=== PATIENT | female | born 1950 | race Caucasian/White ===

== ENCOUNTER 2018-08-26 12:37 | Emergency (ER) | payer MEDICARE, MEDICAID ==
--- NOTE | 2018-08-26 13:08 | ER Document Report ---
ED Medical Screen (RME) - General Chief Complaint: Leg Swelling Stated Complaint: BACK PAIN Time Seen by Provider: 08/26/18 12:56 Notes: Patient is a 68-year-old female with history of COPD that presents to the emergency department for chief complaint of bilateral pleuritic posterior rib pain that wraps around towards the front, worse on the right compared to left. Patient's been having this for the last several days, she is also noticed some weight gain, 10 pounds over the last 6 months, without intentional change in her diet, she is also noticed fluid retention in her legs, which is new for her. ROS: Other than noted above, the 12 point review of systems was reviewed with the patient and were negative, all pertinent findings are included in the HPI. PHYSICAL EXAMINATION: Vital signs reviewed. GENERAL: Well-appearing, well-nourished and in no acute distress. HEAD: Atraumatic, normocephalic. EYES: Pupils equal round extraocular movements intact, conjunctiva are normal. ENT: Nares patent NECK: Normal range of motion CV: Heart rate tachycardic, regular rhythm LUNGS: No respiratory distress, lung sounds diminished at the bases, no wheezing or distress Musculoskeletal: Normal range of motion NEUROLOGICAL: Normal speech PSYCH: Normal mood, normal affect. MDM: Patient seen and examined for rapid initial assessment. Vital signs reviewed. A comprehensive ED assessment and evaluation of the patient, analysis of test results and completion of the medical decision making process will be conducted by additional ED providers. *Note is created using voice recognition software and may contain spelling, syntax or grammatical errors. TRAVEL OUTSIDE OF THE [place] IN LAST 30 DAYS: No - Related Data Allergies/Adverse Reactions: No Known Allergies Allergy (Unverified 08/26/18 12:41) Past Medical History - Social History Chew tobacco use (# tins/day): No Frequency of alcohol use: None Drug Abuse: None - Past Medical History Cardiac Medical History: Reports: Hx Hypercholesterolemia Pulmonary Medical History: Reports: Hx COPD Renal/ Medical History: Denies: Hx Peritoneal Dialysis Physical Exam - Vital signs Vitals: Temp Pulse Resp BP Pulse Ox 97.9 F 103 H 18 146/76 H 92 08/26/18 12:41 08/26/18 12:41 08/26/18 12:41 08/26/18 12:41 08/26/18 12:41 Course - Vital Signs Vital signs: Temp Pulse Resp BP Pulse Ox 97.9 F 103 H 18 146/76 H 92 08/26/18 12:41 08/26/18 12:41 08/26/18 12:41 08/26/18 12:41 08/26/18 12:41
--- NOTE | 2018-08-26 13:45 | RADIOLOGY REPORT (SQ) ---
EXAM DESCRIPTION: CHEST 2 VIEWS COMPLETED DATE/TIME: 08/26/2018 1:21 pm REASON FOR STUDY: short of breath COMPARISON: None. EXAM PARAMETERS: NUMBER OF VIEWS: two views TECHNIQUE: Digital Frontal and Lateral radiographic views of the chest acquired. RADIATION DOSE: NA LIMITATIONS: none FINDINGS: LUNGS AND PLEURA: Small nodular appearing density is identified in the right lung apex and an apical lordotic view of the chest may be of value for further evaluation MEDIASTINUM AND HILAR STRUCTURES: No masses or contour abnormalities. HEART AND VASCULAR STRUCTURES: Heart normal size. No evidence for failure. BONES: No acute findings. HARDWARE: None in the chest. OTHER: No other significant finding. IMPRESSION: Small nodular appearing density is identified in the right lung apex and an apical lordo tic view of the chest may be of value for further evaluation. Remaining lung mayen are clear. Othe r findings as noted above TECHNICAL DOCUMENTATION: JOB ID: [id number] [employer]- All Rights Reserved Reading location - IP/workstation name: [email or web address]
[2018-08-26 14:03] LABS: ABSOLUTE BASOPHILS # (AUTO) 0.1 10^3/uL (0.0-0.2); ABSOLUTE EOSINOPHILS # (AUTO) 0.1 10^3/uL (0.0-0.6); ABSOLUTE LYMPHOCYTES (AUTO) 0.7 10^3/uL (0.5-4.7); ABSOLUTE MONOCYTES (AUTO) 0.5 10^3/uL (0.1-1.4); ABSOLUTE NEUT (AUTO) 5.4 10^3/uL (1.7-8.2); BASOPHILS % (AUTO) 0.8 % (0-2); EOSINOPHILS % (AUTO) 0.8 % (0-6); HEMATOCRIT 39.9 % (36.0-47.0); HEMOGLOBIN 13.4 g/dL (12.0-15.5); LYMPHOCYTES % (AUTO) 10.6 % (13-45); MEAN CORPUSCULAR HEMOGLOBIN 29.1 pg (27.0-33.4); MEAN CORPUSCULAR HGB CONC 33.6 g/dL (32.0-36.0); MEAN CORPUSCULAR VOLUME 87 fl (80-97); MONOCYTES % (AUTO) 8.1 % (3-13); PLATELET COUNT 262 10^3/uL (150-450); RED BLOOD COUNT 4.61 10^6/uL (3.72-5.28); RED CELL DISTRIBUTION WIDTH 13.7 % (11.5-14.0); SEGMENTED NEUTROPHILS % (AUTO) 79.7 % (42-78); TOTAL CELLS COUNTED % (AUTO) 100 %; WHITE BLOOD COUNT 6.7 10^3/uL (4.0-10.5)
[2018-08-26 14:21] LABS: ALANINE AMINOTRANSFERASE 34 U/L (9-52); ALBUMIN 4.3 g/dL (3.5-5.0); ALKALINE PHOSPHATASE 78 U/L (38-126); ANION GAP 9 (5-19); ASPARTATE AMINO TRANSFERASE 32 U/L (14-36); BILIRUBIN,DIRECT 0.3 mg/dL (0.0-0.4); BILIRUBIN,TOTAL 0.7 mg/dL (0.2-1.3); BLOOD UREA NITROGEN 18 mg/dL (7-20); CALCIUM 9.5 mg/dL (8.4-10.2); CARBON DIOXIDE 29 mmol/L (22-30); CHLORIDE 106 mmol/L (98-107); GLUCOSE 111 mg/dL (75-110); POTASSIUM 4.4 mmol/L (3.6-5.0); SODIUM 143.8 mmol/L (137-145); TOTAL PROTEIN 7.2 g/dL (6.3-8.2)
[2018-08-26 14:32] LABS: NT PRO BNP 220 pg/mL (5-900)
[2018-08-26 14:33] LABS: TROPONIN I < 0.012 ng/mL
--- NOTE | 2018-08-26 15:59 | ER Document Report ---
ED General - General Chief Complaint: Leg Swelling Stated Complaint: BACK PAIN Time Seen by Provider: 08/26/18 12:56 Mode of Arrival: Ambulatory Information source: Patient Notes: Patient presents complaining of a 5-day history of rib pain that that wraps around back to the anterior rib area to the epigastric area. Patient states that she feels as though she is retaining fluid. Patient denies any nausea or vomiting. Patient denies any urinary symptoms or cough. Patient is concerned that she will have a thyroid issue. Patient denies any recent travel or immobilization. Patient denies any aggravating or alleviating factors. Patient describes discomfort as a pressure that she rates at about a 2 out of 5 scale. Patient declines needing any pain medication at this time. Patient denies any chest pain or shortness of breath. TRAVEL OUTSIDE OF THE [place] IN LAST 30 DAYS: No - HPI Onset: Other - 5 days Onset/Duration: Persistent Quality of pain: Pressure Pain Level: 2 Associated symptoms: Other - Back pain that wraps around to the front of abdomen. denies: Chest pain, Nonproductive cough, Productive cough, Diarrhea, Fever, Nausea, Vomiting Exacerbated by: Denies Relieved by: Denies Similar symptoms previously: No Recently seen / treated by doctor: No - Related Data Allergies/Adverse Reactions: No Known Allergies Allergy (Unverified 08/26/18 12:41) Past Medical History - General Information source: Patient - Social History Smoking Status: Former Smoker Chew tobacco use (# tins/day): No Frequency of alcohol use: None Drug Abuse: None Occupation: Retired Family History: Reviewed & Not Pertinent Patient has suicidal ideation: No Patient has homicidal ideation: No - Past Medical History Cardiac Medical History: Reports: Hx Hypercholesterolemia Pulmonary Medical History: Reports: Hx COPD Renal/ Medical History: Denies: Hx Peritoneal Dialysis GI Medical History: Reports: Hx Gastroesophageal Reflux Disease Past Surgical History: Reports: Hx Orthopedic Surgery Review of Systems - Review of Systems Constitutional: Weight gain - 10 pound weight gain over 6 months. denies: Fever , Recent illness EENT: No symptoms reported Cardiovascular: No symptoms reported. denies: Chest pain, Dyspnea, Syncope Respiratory: No symptoms reported. denies: Cough, Hemoptysis, Short of breath Gastrointestinal: Abdominal pain - Epigastric. denies: Diarrhea, Nausea, Vomiting, Poor appetite Genitourinary: No symptoms reported. denies: Dysuria, Flank pain Female Genitourinary: No symptoms reported Musculoskeletal: Back pain - Thoracic back pain that wraps around lateral rib area to the epigastric area, no midline spinal tenderness Skin: No symptoms reported Hematologic/Lymphatic: No symptoms reported Neurological/Psychological: No symptoms reported Physical Exam - Vital signs Vitals: Temp Pulse Resp BP Pulse Ox 97.9 F 103 H 18 146/76 H 92 08/26/18 12:41 08/26/18 12:41 08/26/18 12:41 08/26/18 12:41 08/26/18 12:41 - General General appearance: Appears well, Alert In distress: None - HEENT Head: Normocephalic, Atraumatic Eyes: Normal Conjunctiva: Normal Nasal: Normal Mouth/Lips: Normal Mucous membranes: Normal Neck: Normal, Supple. No: Lymphadenopathy - Respiratory Respiratory status: No respiratory distress Chest status: Nontender Breath sounds: Normal. No: Rales, Rhonchi, Stridor, Wheezing Chest palpation: Normal - Cardiovascular Rhythm: Regular Heart sounds: S1 appreciated, S2 appreciated Murmur: No - Abdominal Inspection: Obese Distension: No distension Bowel sounds: Normal Tenderness: Tender - Epigastric, left upper quadrant, right upper quadrant tenderness. No: Guarding Organomegaly: No organomegaly - Back Back: Tender - Thoracic paraspinal tenderness T7 area. No: CVA tenderness, Vertebra tenderness - Extremities General upper extremity: Normal inspection, Normal strength General lower extremity: Normal inspection, Normal strength. No: Edema - Neurological Neuro grossly intact: Yes Cognition: Normal David Coma Scale Eye Opening: Spontaneous David Coma Scale Verbal: Oriented David Coma Scale Motor: Obeys Commands David Coma Scale Total: 15 - Psychological Associated symptoms: Normal affect, Normal mood - Skin Skin Temperature: Warm Skin Moisture: Dry Skin Color: Normal Course - Re-evaluation Re-evalutation: 08/26/18 18:[address] Baker regarding patient presentation. Reviewed patient's x-ray report and concern about possible scar tissue versus neoplasm to the apex of lung. Recommends having patient follow-up with primary doctor and further evaluating this finding on an outpatient basis. No additional testing advised at this time. Patient presents with abdominal pain without signs of peritonitis or other life-threatening or serious etiology. Patient appears stable for discharge and has been instructed to return immediately if the symptoms worsen in any way, or in 8-12 hours if not improved for reevaluation. The patient has been instructed to return if the symptoms worsen or change in any way. - Vital Signs Vital signs: Temp Pulse Resp BP Pulse Ox 97.9 F 103 H 21 H 161/80 H 93 08/26/18 12:41 08/26/18 12:41 08/26/18 19:01 08/26/18 19:01 08/26/18 19:01 - Laboratory Result Diagrams: 08/26/18 13:46 08/26/18 13:46 Laboratory results interpreted by me: 08/26/18 08/26/18 13:46 13:46 Seg Neutrophils % 79.7 H Lymphocytes % 10.6 L Glucose 111 H 08/26/18 18:55 Labs- Entire Visit 08/26/18 08/26/18 08/26/18 13:46 13:46 13:46 WBC 6.7 RBC 4.61 Hgb 13.4 Hct 39.9 MCV 87 MCH 29.1 MCHC 33.6 RDW 13.7 Plt Count 262 Seg Neutrophils % 79.7 H Lymphocytes % 10.6 L Monocytes % 8.1 Eosinophils % 0.8 Basophils % 0.8 Absolute Neutrophils 5.4 Absolute Lymphocytes 0.7 Absolute Monocytes 0.5 Absolute Eosinophils 0.1 Absolute Basophils 0.1 Sodium 143.8 Potassium 4.4 Chloride 106 Carbon Dioxide 29 Anion Gap 9 BUN 18 Creatinine 0.74 Est GFR ( Amer) > 60 Est GFR (Non-Af Amer) > 60 Glucose 111 H Calcium 9.5 Total Bilirubin 0.7 Direct Bilirubin 0.3 Neonat Total Bilirubin Not Reportable Neonat Direct Bilirubin Not Reportable Neonat Indirect Bili Not Reportable AST 32 ALT 34 Alkaline Phosphatase 78 Troponin I < 0.012 NT-Pro-B Natriuret Pep 220 Total Protein 7.2 Albumin 4.3 Lipase TSH Free T4 Free T3 pg/mL 08/26/18 08/26/18 08/26/18 13:46 13:46 17:51 WBC RBC Hgb Hct MCV MCH MCHC RDW Plt Count Seg Neutrophils % Lymphocytes % Monocytes % Eosinophils % Basophils % Absolute Neutrophils Absolute Lymphocytes Absolute Monocytes Absolute Eosinophils Absolute Basophils Sodium Potassium Chloride Carbon Dioxide Anion Gap BUN Creatinine Est GFR ( Amer) Est GFR (Non-Af Amer) Glucose Calcium Total Bilirubin Direct Bilirubin Neonat Total Bilirubin Neonat Direct Bilirubin Neonat Indirect Bili AST ALT Alkaline Phosphatase Troponin I < 0.012 NT-Pro-B Natriuret Pep Total Protein Albumin Lipase 185.1 TSH 4.42 Free T4 0.85 Free T3 pg/mL 3.18 - Diagnostic Test Radiology reviewed: Reports reviewed Discharge - Discharge Clinical Impression: Epigastric pain, Lung nodule Back pain Qualifiers: Back pain location: thoracic back pain Chronicity: unspecified Back pain laterality: bilateral Qualified Code(s): M54.6 - Pain in thoracic spine Condition: Stable Disposition: HOME, SELF-CARE Instructions: Abdominal Pain ([facility]), Growth or Mass, Pending Workup ([facility]), Reflux Disease (GERD) ([facility]) Additional Instructions: Return immediately for any new or worsening symptoms Followup with your primary care provider, call tomorrow to make a followup appointment Your x-ray showed a nodule to your lung. This lesion will need further evaluation on an outpatient basis. Prescriptions: Sucralfate [Carafate 1 gm Tablet] 1 gm PO ACHS #40 tablet Referrals: RAVEN CAGLE MD [ACTIVE STAFF] - Follow up as needed [facility] [Provider Group] - Follow up as needed
[2018-08-26 16:41] LABS: LIPASE 185.1 U/L (23-300)
[2018-08-26 16:58] LABS: FREE T3 3.18 pg/mL (2.77-5.27); FREE T4 (FREE THYROXINE) 0.85 ng/dL (0.78-2.19)
[2018-08-26 17:12] LABS: THYROID STIMULATING HORMONE 4.42 uIU/mL (0.47-4.68)
--- NOTE | 2018-08-26 17:13 | RADIOLOGY REPORT (SQ) ---
EXAM DESCRIPTION: U/S ABDOMEN LIMITED W/O DOP COMPLETED DATE/TIME: 08/26/2018 4:54 pm REASON FOR STUDY: epig, upper abd pain COMPARISON: None. TECHNIQUE: Dynamic and static grayscale images acquired of the abdomen and recorded on PACS. Additio nal selected color Doppler and spectral images recorded. LIMITATIONS: None. FINDINGS: PANCREAS: No masses. Visualized pancreatic duct normal caliber. LIVER: Increased echogenicity with decreased visualization of the portal triads. No focal lesion nato ntified. No intrahepatic duct dilation. LIVER VASCULATURE: Normal directional flow of the main portal vein and hepatic veins. GALLBLADDER: No stones. Normal wall thickness. No pericholecystic fluid. ULTRASOUND-DETECTED CARRILLO'S SIGN: Negative. INTRAHEPATIC DUCTS AND COMMON DUCT: CBD and intrahepatic ducts normal caliber. No filling defects. INFERIOR VENA CAVA: Normal flow. AORTA: No aneurysm. RIGHT KIDNEY: Normal in size measuring 8.2 cm. Normal echogenicity. Hypoechoic cyst within the lowe r pole measuring 1.5 cm. No hydronephrosis. No calcifications. PERITONEAL AND RIGHT PLEURAL SPACE: No ascites or effusions. OTHER: No other significant findings. IMPRESSION: Hepatic steatosis. Otherwise, unremarkable right upper quadrant ultrasound. TECHNICAL DOCUMENTATION: JOB ID: [id number] [employer]- All Rights Reserved Reading location - IP/workstation name: [email or web address]
--- NOTE | 2018-08-26 18:17 | RADIOLOGY REPORT (SQ) ---
EXAM DESCRIPTION: CHEST SINGLE VIEW COMPLETED DATE/TIME: 08/26/2018 6:05 pm REASON FOR STUDY: apical, lordotic view f/u COMPARISON: Chest x-ray done earlier the same day. EXAM PARAMETERS: NUMBER OF VIEWS: One view. TECHNIQUE: Single frontal radiographic view of the chest acquired. RADIATION DOSE: NA LIMITATIONS: None. FINDINGS: LUNGS AND PLEURA: There is a small nodular opacity in the right lung apex. This most like ly represents scar. Largest diameter is 8.1 mm. Correlation with old films or chest CT is recommend ed for further evaluation. MEDIASTINUM AND HILAR STRUCTURES: No masses. Contour normal. HEART AND VASCULAR STRUCTURES: Heart normal in size. Normal vasculature. BONES: No acute findings. HARDWARE: None in the chest. OTHER: No other significant finding. IMPRESSION: Slightly spiculated 8.1 mm nodule in the right lung apex. This may represent scar tissu e. Neoplasm cannot be excluded. TECHNICAL DOCUMENTATION: JOB ID: [id number] [employer]- All Rights Reserved Reading location - IP/workstation name: [email or web address]
[2018-08-26 19:08] VITALS: BP 161/80
--- NOTE | 2018-08-26 20:56 | EKG REPORT ---
SEVERITY:- OTHERWISE NORMAL ECG - SINUS RHYTHM RIGHT AXIS DEVIATION : Confirmed by: Lu Tse MD 26-Aug-2018 20:56:33
== END 2018-08-26 19:15 | disposition home or self-care (01) ==
LOC: ER 12:37
DX: R91.1 Solitary pulmonary nodule (principal); R10.13 Epigastric pain; M54.6 Pain in thoracic spine; M79.89 Other specified soft tissue disorders; R07.81 Pleurodynia; M54.9 Dorsalgia, unspecified; R63.5 Abnormal weight gain; Z87.891 Personal history of nicotine dependence; J44.9 Chronic obstructive pulmonary disease, unspecified
CPT/HCPCS: 36415; 71045; 71046; 76705; 80053; 83690; 83880; 84439; 84443; 84481; 84484; 85025; 93005; 93010; 99285

== ENCOUNTER → 2018-09-24 | Outpatient (CLI) | payer MEDICARE, MEDICAID ==
--- NOTE | 2018-09-24 11:48 | RADIOLOGY REPORT (SQ) ---
EXAM DESCRIPTION: CT CHEST WITH COMPLETED DATE/TIME: 09/24/2018 8:57 am REASON FOR STUDY: PULMONARY NODULE (R91.1), OTHER DISORDERS OF LUNG (J98.4) R91.1 SOLITARY PULMONAR Y NODULE COMPARISON: None. TECHNIQUE: CT scan of the chest performed using helical scanning technique with dynamic intravenous contrast injection. Images reviewed with lung, soft tissue and bone windows. Reconstructed coronal and sagittal MPR and MIP images reviewed. All images stored on PACS. All CT scanners at this facility use dose modulation, iterative reconstruction, and/or weight based d osing when appropriate to reduce radiation dose to as low as reasonably achievable (ALARA). [facility]: Dose Right [facility]: CareDose [facility]: Dose Right [facility]: Teradose 4D [facility]: [employer] CONTRAST TYPE AND DOSE: contrast/concentration: Isovue 350.00 mg/ml; Total Contrast Delivered: 79.0 ml; Total Saline Delivered: 44.2 ml RENAL FUNCTION: GFR > 60. RADIATION DOSE: CT Rad equipment meets quality standard of care and radiation dose reduction techniq ues were employed. CTDIvol: 7.4 mGy. DLP: 273 mGy-cm. . LIMITATIONS: None. FINDINGS: LUNGS AND PLEURA: Centrilobular emphysema in the upper lobes. Apical scarring. No suspic ious nodules. No infiltrate. HILAR AND MEDIASTINAL STRUCTURES: No identified masses or abnormal nodes. HEART AND VASCULAR STRUCTURES: No aneurysm or dissection. No central pulmonary emboli. No pericardi al effusion. HARDWARE: None in the chest. UPPER ABDOMEN: No significant findings. Limited exam. THYROID AND OTHER SOFT TISSUES: No masses. No adenopathy. BONES: Nothing acute. OTHER: No other significant finding. IMPRESSION: COPD. No pulmonary nodule. TECHNICAL DOCUMENTATION: JOB ID: [id number] Quality ID # [id number]: Final reports with documentation of one or more dose reduction techniques (e.g., Au tomated exposure control, adjustment of the mA and/or kV according to patient size, use of iterative reconstruction technique) 2010 [employer]- All Rights Reserved Reading location - IP/workstation name: [email or web address]
== END ==
LOC: RAD 08:37
PROVIDERS: ATTEND Internal Medicine Hematology & Oncology
DX: R91.1 Solitary pulmonary nodule (principal); J44.9 Chronic obstructive pulmonary disease, unspecified
CPT/HCPCS: 71260; 82565

== ENCOUNTER → 2018-10-07 | Outpatient (CLI) | payer MEDICARE, MEDICAID ==
--- NOTE | 2018-10-07 13:52 | WOMENS IMAGING REPORT ---
EXAM DESCRIPTION: BILAT SCREENING MAMMO W/CAD COMPLETED DATE/TIME: 10/07/2018 1:29 pm REASON FOR STUDY: Z12.31 SCREENING MAMMO Z12.31 ENCNTR SCREEN MAMMOGRAM FOR MALIGNANT NEOPLASM OF B RE COMPARISON: None. TECHNIQUE: Standard craniocaudal and mediolateral oblique views of each breast recorded using digita l acquisition. LIMITATIONS: None. FINDINGS: No masses, calcifications or architectural distortion. No areas of suspicion. Read with the assistance of CAD. .[facility] - R2 Cenova Version 1.3 .[facility] - R2 Cenova Version 1.3 .[facility] - R2 Cenova Version 2.4 .[facility] - R2 Cenova Version 2.4 .[facility] - R2 Charge Aide Version 9.2 IMPRESSION: NORMAL MAMMOGRAM. BIRADS 1. BREAST DENSITY: b. There are scattered areas of fibroglandular density. BIRAD: 1 NEGATIVE RECOMMENDATION: ROUTINE SCREENING COMMENT: The patient has been notified of the results by letter per SA requirements. Additional no tification policies are in place for contacting patient with suspicious or incomplete findings. Quality ID #225: The [employer] recommends an annual screening mammogram for women aged 40 years or over. This facility utilizes a reminder system to ensure that all patients receive reminder letters, and/or direct phone calls for appointments. This includes reminders for routine scr eening mammograms, diagnostic mammograms, or other Breast Imaging Interventions when appropriate. Th is patient will be placed in the appropriate reminder system. The [employer] (ACR) has developed recommendations for screening MRI of the breast s in certain patient populations, to be used in conjunction with mammography. Breast MRI surveillanc e may be appropriate for women with more than 20% lifetime risk of developing breast cancer as deter mined by genetic testing, significant family history of the disease, or history of mantle radiation f or Hodgkins Disease. ACR Practice Guidelines 2008. TECHNICAL DOCUMENTATION: FINDING NUMBER: (1) ASSESSMENT: (1) JOB ID: [id number] [employer]- All Rights Reserved Reading location - IP/workstation name: [email or web address]
== END ==
LOC: WI 12:59
PROVIDERS: ATTEND Family Medicine
DX: Z12.31 Encounter for screening mammogram for malignant neoplasm of breast (principal)
CPT/HCPCS: 77067

== ENCOUNTER → 2019-10-27 | Outpatient (CLI) | payer MEDICARE, MEDICAID ==
--- NOTE | 2019-10-27 13:46 | XCELERA REPORT ---
[address] [address] Transthoracic Echocardiogram Report Name: PORTER LONGO Age: 69 yrs Gender: Female : 1950 Patient Status: Outpatient Patient Location: Study Date: 10/27/2019 09:01 AM Height: 60 in Weight: 157 lb BSA: 1.7 m2 Reason For Study: DYSPNEA Ordering Physician: KEVIN AMATO Performed By: Joan Tim Interpretation Summary Suboptimal study, no Biplane LVEF and no REYNALDO calculation, and no IVC sniff assessment by this bioinformatics research technician. Difficult exam per bioinformatics research technician d/t COPD. Findigs Min. posterior pericardial effusion. Aortic root not dilated . Mild nonstenotic calcific aortic valvular disease, 3 cusps AV, no AR. Mild mtral annular calcification. No MS, no MVP, no MR and no LA enlargement. No LVH. Normal LVEF 65-70% with stage I LV diastolic dysfunction. Aside from basal inferior hypokinesis, no other regional wall motion abnormality. No LV enlargement. Normal R heart, no enlargement, normal TAPSE, Mild TR with RVSP estimated to be 33. RAP 3. there is mild pulm hypertension. MMode/2D Measurements & Calculations RVDd: 3.1 cm LVIDd: 3.5 cm FS: 36.4 % Ao root diam: 2.9 cm IVSd: 4.4 cm LVIDs: 2.3 cm EDV(Teich): 52.4 ml LVPWd: 1.0 cm ESV(Teich): 17.2 ml Ao root area: 6.6 cm2 LA dimension: 2.4 cm EF(Teich): 67.2 % Doppler Measurements & Calculations MV E max osiel: MV P1/2t max osiel: Ao V2 max: LV V1 max P.7 cm/sec 96.6 cm/sec 130.3 cm/sec 4.5 mmHg MV A max osiel: MV P1/2t: 76.0 msec Ao max P.8 mmHgLV V1 max: 65.9 cm/sec MVA(P1/2t): 2.9 cm2 105.7 cm/sec MV E/A: 0.86 MV dec slope: 372.7 cm/sec2 MV dec time: 0.22 sec PA V2 max: TR max osiel: MV P1/2t-pr_phl: 105.6 cm/sec 271.5 cm/sec 76.0 msec PA max P.5 mmHgTR max P.5 mmHg I WMSI = 1.06 % Normal = 94 Segments Size X - Cannot 2 - 4 - 1-2 small Interpret 1 - Normal Hypokinetic 3 - AkineticDyskinetic 3-5 moderate 5 - 6-14 large Aneurysmal 15-16 diffuse : KEVIN AMATO Andre
== END ==
LOC: SP 08:36
PROVIDERS: ATTEND Internal Medicine Pulmonary Disease
DX: R06.09 Other forms of dyspnea (principal)
CPT/HCPCS: 93306

== ENCOUNTER → 2020-04-06 | Outpatient (CLI) | payer MEDICARE, MEDICAID ==
--- NOTE | 2020-04-06 12:50 | WOMENS IMAGING REPORT ---
EXAM DESCRIPTION: 3D SCREENING MAMMO BILAT IMAGES COMPLETED DATE/TIME: 04/06/2020 12:32 pm REASON FOR STUDY: Z12.31 ENCOUNTER FOR SCREENING MAMMOGRAM FOR MALIGNANT NEOPLASM OF BREAST Z12.31 ENCNTR SCREEN MAMMOGRAM FOR MALIGNANT NEOPLASM OF MARISSA COMPARISON: 2019 EXAM PARAMETERS: Views: Standard craniocaudal and mediolateral oblique views of each breast recorded using digital acquisition and breast tomosynthesis. Read with the assistance of CAD. .[facility] - R2 Counseling Aide Version 9.2 LIMITATIONS: None. FINDINGS: No suspicious masses, suspicious calcifications or architectural distortion. No areas of c oncern. IMPRESSION: NEGATIVE MAMMOGRAM. BIRADS 1. BREAST DENSITY: b. There are scattered areas of fibroglandular density. BIRAD: ASSESSMENT: 1 NEGATIVE RECOMMENDATION: ROUTINE SCREENING COMMENT: The patient has been notified of the results by letter per MQSA requirements. Additional no tification policies are in place for contacting patient with suspicious or incomplete findings. Quality ID #225: The [place] recommends an annual screening mammogram for women aged 40 years or over. This facility utilizes a reminder system to ensure that all patients receive reminder letters, and/or direct phone calls for appointments. This includes reminders for routine scr eening mammograms, diagnostic mammograms, or other Breast Imaging Interventions when appropriate. Th is patient will be placed in the appropriate reminder system. TECHNICAL DOCUMENTATION: FINDING NUMBER: (1) ASSESSMENT: (1) JOB ID: [id number] 2010 [employer]- All Rights Reserved Reading location - IP/workstation name: [email or web address]
== END ==
LOC: WI 10:45
PROVIDERS: ATTEND Physician Assistant
DX: Z12.31 Encounter for screening mammogram for malignant neoplasm of breast (principal)
CPT/HCPCS: 77063; 77067

== ENCOUNTER → 2020-05-17 | Outpatient (CLI) | payer MEDICARE, MEDICAID ==
--- NOTE | 2020-05-17 15:41 | RADIOLOGY REPORT (SQ) ---
EXAM DESCRIPTION: SHOULDER LEFT 2 OR MORE VIEWS IMAGES COMPLETED DATE/TIME: 05/17/2020 2:45 pm REASON FOR STUDY: PAIN IN LT SHOULDER M25.512 PAIN IN LEFT SHOULDER COMPARISON: None. NUMBER OF VIEWS: Three views. TECHNIQUE: Internal rotation, external rotation, and Y view images acquired of the left shoulder. LIMITATIONS: None. FINDINGS: MINERALIZATION: Normal. BONES: No acute fracture. No worrisome bone lesions. JOINTS: Narrowing of the glenohumeral joint with marginal osteophytes on the humeral head. VISUALIZED LUNGS AND RIBS: No pneumothorax. No rib fracture. SOFT TISSUES: Calcification in the rotator cuff. OTHER: No other significant finding. IMPRESSION: Glenohumeral degenerative joint changes. Calcifications in the rotator cuff. TECHNICAL DOCUMENTATION: JOB ID: [id number] 2010 [facility]- All Rights Reserved Reading location - IP/workstation name: [email or web address]
== END ==
LOC: RAD 14:29
PROVIDERS: ATTEND Physician Assistant
DX: M25.712 Osteophyte, left shoulder (principal); M25.512 Pain in left shoulder

== ENCOUNTER → 2020-06-08 | Outpatient (CLI) | payer MEDICARE, MEDICAID | LOC: OD 14:29 | PROVIDERS: ATTEND Otolaryngology | DX: J32.9 Chronic sinusitis, unspecified (principal) | CPT/HCPCS: 36415; 82785; 86003 ==

== ENCOUNTER → 2020-07-28 | Outpatient (CLI) | payer MEDICARE, MEDICAID ==
--- NOTE | 2020-07-28 20:47 | RADIOLOGY REPORT (SQ) ---
EXAM DESCRIPTION: Site: CT SINUSES FOR ENT RP: CT SINUSES LIMITED WITHOUT IV CONTRAST CLINICAL HISTORY: 70 years Female; J01.90 ACUTE SINUSITIS, UNSPECIFIED; TECHNIQUE: High resolution axial CT of the paranasal sinuses without contrast, with sagittal and coronal reformatted images. All CT scans at this facility use dose modulation, iterative reconstruction, and/or weight based dosing when appropriate to reduce radiation dose to as low as reasonably achievable. COMPARISON: None. FINDINGS: Paranasal sinuses are clear. No significant mucosal thickening, or air-fluid levels. No significant septal deviation. Maxillary ostia are patent bilaterally. Right ostium is narrowed by Nigel cell. Small left Nigel cell. Frontal recesses are clear. Sphenoethmoidal recesses are clear. No retro-orbital edema or mass. No mastoid effusion. IMPRESSION: 1. No acute sinusitis or chronic mucosal thickening. 2. Mild right maxillary ostial narrowing
== END ==
LOC: RAD 09:51
PROVIDERS: ATTEND Otolaryngology
DX: J01.90 Acute sinusitis, unspecified (principal)
CPT/HCPCS: 70486

== ENCOUNTER → 2020-08-04 | Outpatient (CLI) | payer MEDICARE, MEDICAID ==
--- NOTE | 2020-08-04 13:29 | EKG REPORT ---
SEVERITY:- ABNORMAL ECG - SINUS RHYTHM PROBABLE LEFT ATRIAL ABNORMALITY RSR' IN LEADS V1 AND V2 : Confirmed by: Lu Tse MD 04-Aug-2020 13:28:42
[2020-08-04 14:03] LABS: APPEARANCE,URINE CLEAR; BILIRUBIN,URINE NEGATIVE (NEGATIVE); COLOR,URINE STRAW; GLUCOSE, URINE NEGATIVE (NEGATIVE); KETONES,URINE NEGATIVE (NEGATIVE); LEUKOCYTE ESTERASE,URINE TRACE (NEGATIVE); NITRITE,URINE NEGATIVE (NEGATIVE); PROTEIN,URINE NEGATIVE (NEGATIVE); URINE SPECIFIC GRAVITY 1.005; UROBILINOGEN,URINE NEGATIVE mg/dL (<2.0)
[2020-08-04 14:09] LABS: HEMOGLOBIN 13.4 g/dL (12.0-15.5); MEAN CORPUSCULAR HGB CONC 32.7 g/dL (32.0-36.0); MEAN CORPUSCULAR VOLUME 85 fl (80-97); PLATELET COUNT 261 10^3/uL (150-450); RED BLOOD COUNT 4.81 10^6/uL (3.72-5.28); RED CELL DISTRIBUTION WIDTH 14.4 % (11.5-14.0); WHITE BLOOD COUNT 6.1 10^3/uL (4.0-10.5)
[2020-08-04 14:21] LABS: ANION GAP 11 (5-19); BLOOD UREA NITROGEN 19 mg/dL (7-20); CALCIUM 9.6 mg/dL (8.4-10.2); CARBON DIOXIDE 28 mmol/L (22-30); CHLORIDE 102 mmol/L (98-107); GLUCOSE 88 mg/dL (75-110); POTASSIUM 4.9 mmol/L (3.6-5.0)
== END ==
LOC: OD 12:12
PROVIDERS: ATTEND Orthopaedic Surgery
DX: Z01.810 Encounter for preprocedural cardiovascular examination (principal); Z01.812 Encounter for preprocedural laboratory examination; Z01.818 Encounter for other preprocedural examination; Z79.899 Other long term (current) drug therapy
CPT/HCPCS: 36415; 80048; 81001; 83036; 85027; 93005; 93010

== ENCOUNTER → 2020-08-07 | Outpatient (CLI) | payer MEDICARE, MEDICAID ==
--- NOTE | 2020-08-07 13:45 | RADIOLOGY REPORT (SQ) ---
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 RADIATION DOSE: NA LIMITATIONS: none FINDINGS: LUNGS AND PLEURA: Bilateral prominent interstitial markings. No consolidation or effusion s. No pneumothorax. MEDIASTINUM AND HILAR STRUCTURES: No masses or contour abnormalities. HEART AND VASCULAR STRUCTURES: Heart normal size. No evidence for failure. BONES: No acute findings. HARDWARE: None in the chest. OTHER: No other significant finding. IMPRESSION: Bilateral interstitial airspace disease. No consolidation. No pneumothorax. TECHNICAL DOCUMENTATION: JOB ID: [id number] 2010 [employer]- All Rights Reserved Reading location - IP/workstation name: [email or web address]
== END ==
LOC: RAD 13:18
PROVIDERS: ATTEND Orthopaedic Surgery
DX: J84.9 Interstitial pulmonary disease, unspecified (principal); Z79.899 Other long term (current) drug therapy
CPT/HCPCS: 71046

== ENCOUNTER 2020-08-29 05:39 | Inpatient (IN) | payer MEDICARE, MEDICAID ==
[~2020-08-29 05:39] MED LIST: CEFAZOLIN 2 GM/D5W RTU 2 GM/50 ML RTUPB IV ONE; CEFAZOLIN 2 GM/D5W RTU 2 GM/50 ML RTUPB IV PRN; LACTATED RINGERS 1000 ML IV PRN; OXYCODONE HCL SR 10 MG TABLET PO ONE; PANTOPRAZOLE SODIUM 20 MG TABLET.DR PO ONE
[2020-08-29] MEDS ORDERED: ONDANSETRON HCL INJ/PF 4 MG/2 ML SDV ONE (06:17)
[2020-08-29] MEDS ORDERED: DEXAMETHASONE SOD PHOSPHATE INJ 4 MG/1 ML VIAL ONE (06:17)
[2020-08-29] MEDS ORDERED: MIDAZOLAM 2 MG/2 ML INJ ONE (06:17)
[2020-08-29] MEDS ORDERED: PROPOFOL INJ 200 MG/20 ML VIAL IV ONE (06:17)
[2020-08-29] MEDS ORDERED: FENTANYL CITRATE INJ/PF 100 MCG/2 ML AMPUL ONE (06:17)
[2020-08-29] MEDS ORDERED: LIDOCAINE 0.5% INJ-PF (5 MG/ML) 50 ML SDV ONE (06:23)
[2020-08-29] MEDS ORDERED: ROPIVACAINE HCL 0.5% INJ/PF (5 MG/1 ML) 30 ML SDV ONE (06:57)
[2020-08-29] MEDS ORDERED: BUPIVACAINE INJ/PF LIPOSOME/PF 266 MG/20 ML SDV ONE (07:09)
[2020-08-29] MEDS ORDERED: TRANEXAMIC ACID INJ/PF 1,000 MG/10 ML SDV ONE (07:52)
[2020-08-29] MEDS ORDERED: MORPHINE SULFATE 10 MG/ML INJ IV PRN ×2 (08:21→10:06)
[2020-08-29] MEDS ORDERED: ONDANSETRON HCL INJ/PF 4 MG/2 ML SDV IV PRN (08:21)
[2020-08-29] MEDS ORDERED: FENTANYL CITRATE INJ/PF 100 MCG/2 ML AMPUL IV PRN ×3 (08:21)
[2020-08-29] MEDS ORDERED: DIPHENHYDRAMINE HCL 50 MG/ML VIAL IV PRN (08:21)
[2020-08-29] MEDS ORDERED: MEPERIDINE HCL/PF INJ 25 MG/1 ML DISP.SYRIN IV PRN (08:21)
[2020-08-29] MEDS ORDERED: PROMETHAZINE HCL INJ 25 MG/1 ML VIAL IV PRN ×2 (08:21)
[2020-08-29] MEDS ORDERED: VANCOMYCIN HCL INJ 1000 MG VIAL ONE (09:36)
[2020-08-29] MEDS ORDERED: RINGERS SOLUTION,LACTATED 1,000 ML IV PRN (10:03)
--- NOTE | 2020-08-29 10:13 | Operative Report ---
Operative Report DATE OF SURGERY: 08/29/20 PREOPERATIVE DIAGNOSIS: Left glenohumeral osteoarthritis with rotator cuff invo lvement POSTOPERATIVE DIAGNOSIS: Same OPERATION: Left reverse total shoulder arthroplasty SURGEON: LINCOLN AJ ANESTHESIA: GA COMPLICATIONS: None ESTIMATED BLOOD LOSS: 75 cc PROCEDURE: Indication for above procedure: 70-year-old female with longstanding history of left shoulder osteoarthritis. Attempted conservative measures including anti-inflammatory medication, home exercise program and injections which failed provide long-term relief. Radiographs and MRI were performed demonstrating glenohumeral osteoarthritis with high-grade rotator cuff involvement. After discussing risk and benefits of operative treatment decision was made to proceed with operative intervention. Procedure In Detail: Patient was seen and evaluated in the preoperative holding area. The upper extremity was initialized and marked. Patient received 2g of Ancef IV for bacterial prophylaxis. Patient was taken back to the operative room where transferred to the operative table and placed under general anesthesia. Once they were adequately anesthetized patient placed in the beachchair position. Cervical spine was placed in neutral position all bony prominences were padded including nonoperative upper extremity and bilateral lower extremity. A surgical team debriefing was performed ensuring all instrumentation was available, the surgical procedure was discussed with possible concerns reviewed. Patient received tranexamic acid preop. The upper extremity was prepped with ChloraPrep draped in a sterile fashion. A timeout was done identifying correct patient, procedure and extremity everyone in attendance agree with this and verbalized no concerns. Longitudinal skin incision was made just medial to the AC joint over the coracoid. Deltoid pectoral approach was then utilized. Cephalic vein was identified and retracted in a lateral direction tributaries within the deltoid were coagulated with cautery. The clavicle-pectoralis fascia was then opened. Subdeltoid recess was freed of surrounding adhesions. The biceps tendon was identified within the bicipital groove but retracted and scarred to the pectoralis. The proximal 25% of the pectoralis tendon was released. The arm was then externally rotated the circumflex vessels were tied off with #1 Vicryl suture medially and laterally and coagulated to control bleeding. The subscapularis was then released from the lesser tuberosity and reflected medially. The inferior capsule was identified and the axillary nerve palpated. Inferior capsule was then released. A Fukuda retractor was placed within the posterior glenoid and circumferential capsular release was performed along the glenoid. Any remnant of the biceps tendon was excised as well. There was significant wear along the humerus with with high-grade full-thickness tear of the supraspinatus. Significant osteophytes were noted along the humeral head and excised. A loose body was noted within the joint which was removed as well. Intramedullary dina was then placed just medial to the greater tuberosity to palpate the intramedullary canal. I then placed the aiming arm on the guide dina. 30 degrees of version was then obtained. The guide was pinned into position and intramedullary reamer removed. Soft cut was then completed. Peripheral osteophytes medially were excised. The humeral cap was then placed. Posterior retractors placed along the glenoid with the arm internally rotated. Glenoid exposure was further provided with additional posterior capsular release. Any remanent labrum was excised. Utilizing the VIP guide the central portion of the glenoid was then drilled with the pin. This matched preoperative templating. It measured approximately 20 mm. The augmented reamer was then placed over the guidewire and reaming began. Good peripheral cancellous bone was obtained inferiorly. The overdrill was then placed through the glenoid and pin removed. Central screw was tapped and the monoblock 24 mm neutral baseplate was implanted. Initial fixation was obtained with a 5.5 x 24 mm locking screw within superior portion of the glenoid remaining screws measured 5.5 x 60 mm, 5.5 x 20 mm and 5.5 x 60 mm. A size 33+4 glenosphere was implanted. Stability of the implant was confirmed with the locking screw and with palpation. The canal was then prepared increasing up to a size 8 humeral stem broach which gave good peripheral fit. There was mild posterior offset and thus reaming of the proximal portion was obtained with a posterior offset reamer. A size 8 humeral stem was then implanted. Prior to implantation of the stem for drill holes were placed along the lesser tuberosity to allow for subscapularis repair. A size 36+ neutral left suture cup was then implanted in position. I then began trialing initially with a +3 humeral insert this gave good stability throughout range of motion however there is slight instability with internal rotation and extension. A 36/+6 trial was attempted which gave good stability throughout all ranges of motion. Patient had full passive abduction/external rotation. Had easy passive range of motion to the back of his head. And thus a humeral 33/+6 polyethylene was implanted into position. Joint was reduced patient had good range of motion with stability throughout all ranges including abduction/external rotation and internal rotation and extension. Wound was then copiously irrigated with Betadine saline and additional liter of normal saline. A total of 1 g of vancomycin powder was placed within the wound. The subscapularis was closed with a Leobardo-Jg mattress with #2 FiberWire through drill holes. This was then resecured with any remnant of the subscapularis with a #2 FiberWire. The deltopectoral interval was closed with 0 Vicryl and #1 Vicryl suture. Subcutaneous tissues were then closed with interrupted 2-0 Vicryl suture. Skin was closed running subcuticular 4-0 Monocryl reinforced with Dermabond and Steri-Strips. Acticoat dressing was placed. Sponge counts, instrument counts, needle counts were correct. Patient was then awoken from anesthesia. Transferred from the operating room table to the operating room stretcher. There was no intraoperative complications patient t olerated procedure well stable to PACU. Postoperative plan: Patient will be admitted for observation 24 hours. Patient will be started on enteric-coated aspirin 325 mg for DVT prophylaxis. Follow-up in the office in 2 weeks for wound check. IMPLANTS: Arthrex Reverse MGS 24 mm baseplate monoblock screw, glenosphere 33+4 lateral I/24 Arthrex Universe Reverse [place] humeral stem size 8, Universe Reverse Suture cup 36 neutral, Universe Reverse MGS humeral insert 36+6/33
[2020-08-29] MEDS ORDERED: SUCCINYLCHOLINE CHLORIDE INJ 200 MG/10 ML VIAL ONE (10:20)
--- NOTE | 2020-08-29 11:48 | RADIOLOGY REPORT (SQ) ---
EXAM DESCRIPTION: SHOULDER LEFT 2 OR MORE VIEWS IMAGES COMPLETED DATE/TIME: 08/29/2020 10:58 am REASON FOR STUDY: post op M19.012 PRIMARY OSTEOARTHRITIS, LEFT SHOULDER COMPARISON: None. NUMBER OF VIEWS: Three views. TECHNIQUE: Internal rotation, external rotation, and Y view images acquired of the left shoulder. LIMITATIONS: None. FINDINGS: Reverse shoulder arthroplasty components in expected position. Subcutaneous gas consisten t with recent surgery. No unexpected findings. IMPRESSION: Satisfactory postop shoulder. TECHNICAL DOCUMENTATION: JOB ID: [id number] 2010 [employer]- All Rights Reserved Reading location - IP/workstation name: [email or web address]
[2020-08-29] MEDS ORDERED: CEFAZOLIN 2 GM/D5W RTU 2 GM/50 ML RTUPB IV SCH (12:00)
[2020-08-29] MEDS: ACETAMINOPHEN 1,000 MG/100 ML RTUPB IV SCH ×2 (13:19→22:13)
[2020-08-29] MEDS: CEFAZOLIN SODIUM 2 GM in DEXTROSE 5%-WATER 100 ML IV SCH ×3 (13:54→23:18)
[2020-08-29] MEDS: OXYCODONE HCL IR 5 MG TABLET PO PRN (19:51)
[2020-08-30] MEDS: OXYCODONE HCL IR 5 MG TABLET PO PRN (02:25)
[2020-08-30] MEDS: CEFAZOLIN SODIUM 2 GM in DEXTROSE 5%-WATER 100 ML IV SCH (05:06)
[2020-08-30] MEDS: ACETAMINOPHEN 1,000 MG/100 ML RTUPB IV SCH (05:55)
[2020-08-30 06:56] LABS: HEMOGLOBIN 10.9 g/dL (12.0-15.5); MEAN CORPUSCULAR HEMOGLOBIN 28.5 pg (27.0-33.4); MEAN CORPUSCULAR VOLUME 87 fl (80-97); RED BLOOD COUNT 3.82 10^6/uL (3.72-5.28); RED CELL DISTRIBUTION WIDTH 14.3 % (11.5-14.0); WHITE BLOOD COUNT 10.8 10^3/uL (4.0-10.5)
[2020-08-30 07:22] LABS: PLATELET COUNT 213 10^3/uL (150-450)
[2020-08-30 07:26] LABS: INTERNATIONAL RATION (INR) 0.98; PROTHROMBIN TIME 13.2 SEC (11.4-15.4)
[2020-08-30 08:26] VITALS: BP 122/51
[2020-08-30] MEDS ORDERED: ASPIRIN 325 MG TABLET, ENT COATED PO SCH (10:00)
== END 2020-08-30 10:22 | disposition home or self-care (01) | DRG 483 ==
LOC: INOR 05:39 → 5 12:15
PROVIDERS: ADMIT Orthopaedic Surgery; ATTEND Orthopaedic Surgery
PROC: 0RRK0JZ Replacement of Left Shoulder Joint with Synthetic Substitute, Open Approach (ICD-10-PCS; principal; 2020-08-29 07:30)
DX: M19.012 Primary osteoarthritis, left shoulder (principal); E03.9 Hypothyroidism, unspecified; E78.00 Pure hypercholesterolemia, unspecified; I10 Essential (primary) hypertension; J44.9 Chronic obstructive pulmonary disease, unspecified; K21.9 Gastro-esophageal reflux disease without esophagitis; Z87.891 Personal history of nicotine dependence; Z98.1 Arthrodesis status; Z11.59 Encounter for screening for other viral diseases
CPT/HCPCS: 01638; 36415; 64415; 76942; 84132; 85027; 85610; 86850; 86900; 86901; 87635; A4649; C1713; C1776; C9290; C9803; J0131; J0330; J0690; J1100; J2250; J2270; J2405; J2704; J2795; J3010; J3370; J3490; J7060; J7120; L3650

== ENCOUNTER → 2020-09-06 | Outpatient (CLI) | payer MEDICARE, MEDICAID ==
--- NOTE | 2020-09-06 15:19 | RADIOLOGY REPORT (SQ) ---
EXAM DESCRIPTION: VENOUS BILATERAL LOWER IMAGES COMPLETED DATE/TIME: 09/06/2020 3:08 pm REASON FOR STUDY: BLEV PAIN M79.605 PAIN IN LEFT LEG M79.604 PAIN IN RIGHT LEG M79.661 PAIN IN RI GHT LOWER LEG COMPARISON: None. TECHNIQUE: Dynamic and static mac scale and color images acquired of both lower extremity venous sy stems. Selected spectral images acquired with additional compression and augmentation maneuvers. Imag es stored on PACS. LIMITATIONS: None. FINDINGS: RIGHT LEG COMMON FEMORAL AND FEMORAL: Normal phasicity, compression and augmentation. No visualized echogenic m aterial on mac scale. No defects on color images. POPLITEAL: Normal compression and augmentation. No visualized echogenic material on mac scale. No de fects on color images. CALF VESSELS: Normal compression and augmentation. No visualized echogenic material on mac scale. No defects on color image. GSV AND SSV: Normal compression. No visualized echogenic material on mac scale. No defects on color images. ANY DEEP VENOUS INSUFFICIENCY: Not evaluated. ANY EVIDENCE OF POPLITEAL CYST: No. OTHER: No other significant finding. LEFT LEG COMMON FEMORAL AND FEMORAL: Normal phasicity, compression and augmentation. No visualized echogenic m aterial on mac scale. No defects on color images. POPLITEAL: Normal compression and augmentation. No visualized echogenic material on mac scale. No de fects on color images. CALF VESSELS: Normal compression and augmentation. No visualized echogenic material on mac scale. No defects on color images. GSV AND SSV: Normal compression. No visualized echogenic material on mac scale. No defects on color images. ANY DEEP VENOUS INSUFFICIENCY: Not evaluated. ANY EVIDENCE POPLITEAL CYST: No. OTHER: No other significant finding. IMPRESSION: NO EVIDENCE DVT OR SVT IN EITHER LEG. TECHNICAL DOCUMENTATION: JOB ID: [id number] 2010 [employer]- All Rights Reserved Reading location - IP/workstation name: [email or web address]
== END ==
LOC: SP 13:30
PROVIDERS: ATTEND Physician Assistant
DX: M79.661 Pain in right lower leg (principal); M79.662 Pain in left lower leg; Z98.890 Other specified postprocedural states
CPT/HCPCS: 93970